=== PATIENT | female | born 1975 | race African-American/Black ===

== ENCOUNTER 2017-12-15 16:01 | Emergency (ER) | payer OTHER ==
[~2017-12-15] VITALS: Ht 167.6 cm; Wt 76.2 kg
[~2017-12-15 16:01] MED LIST: BENADRYL25 MG PO; MACROBID 100 M100 M1 PO
[2017-12-15 16:17] VITALS: BP 134/79
[2017-12-15] MEDS ORDERED: HYDROXYZINE HCL25 M1 PO (16:41)
[2017-12-15] MEDS ORDERED: PREDNISONE 20 M20 MG PO (16:41)
[2017-12-15] MEDS ORDERED: LOTRISONE CREAM15 GM TOP (16:45)
== END 2017-12-15 17:23 | disposition home or self-care (01) ==
LOC: ER 16:01
DX: B35.4 Tinea corporis (principal); L25.9 Unspecified contact dermatitis, unspecified cause; F17.210 Nicotine dependence, cigarettes, uncomplicated; Z88.2 Allergy status to sulfonamides

== ENCOUNTER 2020-09-12 15:21 | Emergency (ER) | payer OTHER ==
[~2020-09-12] VITALS: Ht 167.6 cm; Wt 75.8 kg
[~2020-09-12 15:21] MED LIST changes: +HYDROXYZINE HCL25 M1 PO; +LOTRISONE CREAM15 GM TOP; +PREDNISONE 20 M20 MG PO
[2020-09-12] MEDS ORDERED: CYCLOBENZAPRINE5 MG PO (18:02)
[2020-09-12] MEDS ORDERED: HYDROCODON-ACE1 EAC7 PO (18:02)
[2020-09-12 18:18] VITALS: BP 184/107
== END 2020-09-12 18:20 | disposition home or self-care (01) ==
LOC: ER 15:21
DX: M51.26 Other intervertebral disc displacement, lumbar region (principal); M25.512 Pain in left shoulder; M54.2 Cervicalgia; F17.210 Nicotine dependence, cigarettes, uncomplicated; Z88.2 Allergy status to sulfonamides; Z88.8 Allergy status to other drugs, medicaments and biological substances; V43.52XA Car driver injured in collision with other type car in traffic accident, initial encounter; Y93.89 Activity, other specified; Y92.89 Other specified places as the place of occurrence of the external cause; Y99.8 Other external cause status